=== PATIENT | female | born 2005 | race Caucasian/White ===

== ENCOUNTER → 2024-07-26 07:48 | Outpatient (CLI) | payer OTHER, SELFPAY ==
--- NOTE | 2024-07-26 07:52 | DI.MRI.S_ITS ---
PROCEDURE: MR KNEE RT WO CON INDICATIONS: PAIN IN RIGHT KNEE TECHNIQUE: Noncontrast sagittal PD fast spin echo and T2 fast spin echo with fat saturation, sagittal 3-D FLASH with fat saturation; coronal T1 spin echo and PD fast spin echo with fat saturation, and axial PD fast spin echo with fat saturation through the knee. COMPARISON: None. FINDINGS: Image quality: Excellent. Anterior cruciate ligament: Intact. Posterior cruciate ligament: Intact. Medial collateral ligament: Intact. Lateral collateral ligament: Intact. Medial meniscus: Suspected subtle horizontal oblique tear at the junction of the posterior horn and body of the medial meniscus extending to the outer third of the tibial articular surface. Lateral meniscus: Intact. Medial and lateral tendons: The semimembranosus tendon insertions appear intact. Visualized portions of the pes anserinus tendons appear normal. The popliteus tendon is intact. Iliotibial band appears normal. Anterior structures: Borderline patella galina. The quadriceps and patellar tendons appear intact. No patellar subluxation. No femoral trochlear dysplasia or ventral trochlear prominence. No edema in the infrapatellar fat pad. Bones: No bone marrow contusions or fractures. Medial femorotibial cartilage: Intact. Lateral femorotibial cartilage: Intact. Patellofemoral cartilage: Intact. Soft tissues: There is physiologic knee joint fluid. Trace medial popliteal cyst. The musculature surrounding the knee is normal in bulk. IMPRESSION: 1. Suspected peripheral horizontal oblique tear at the junction of the posterior horn and body of the medial meniscus extending to the outer third of the tibial articular surface. 2. Cruciate and collateral ligaments are intact. No acute trabecular bone injury. No lateral meniscal tear or focal cartilage defect. Approved by: Paulie Crews M.D. on 07/26/2024 at 9:25
== END ==
LOC: MRI 07:51
PROVIDERS: Referring Provider Student in an Organized Health Care Education/Training Program; Visit Provider Student in an Organized Health Care Education/Training Program
DX: M25.561 Pain in right knee (principal)
CPT/HCPCS: 73721